=== PATIENT | male | born 1950 | race African-American/Black ===

== ENCOUNTER 2020-12-23 17:02 | Inpatient (IN) | payer OTHER ==
[~2020-12-23] VITALS: Ht 182.9 cm; Wt 125.2 kg
[2020-12-23 17:26] LABS: Basophils # (auto) 0.1 10 ^3/uL (0-0.2); Basophils % (auto) 0.9 % (0.0-2.0); Eosinophils # (auto) 0.1 10 ^3/uL (0-0.8); Eosinophils % (auto) 0.9 % (0.0-7.0); Hematocrit 43.4 % (41.0-53.0); Hemoglobin 14.9 g/dL (13.5-17.5); Lymphocytes # (auto) 2.5 10 ^3/uL (0.4-5.4); Lymphocytes % (auto) 41.2 % (10.0-50.0); Mean Corpuscular Hemoglobin 31.7 pg (28.0-32.0); Mean Corpuscular Hgb Conc. 34.3 g/dL (32.0-36.0); Mean Corpuscular Volume 92.4 fL (80.0-100.0); Monocytes # (auto) 0.6 10 ^3/uL (0-1.3); Monocytes % (auto) 9.8 % (0.0-12.0); Neutrophils # (auto) 2.9 10 ^3/uL (1.6-8.6); Neutrophils % (auto) 47.2 % (37.0-80.0); Red Cell Distribution Width 13.2 % (11.8-14.3); White Blood Cell 6.1 10^3/uL (4.4-10.8)
[2020-12-23] MEDS ORDERED: SODIUM CHLORIDE 0.9% 1,000 ML IV ONE ×2 (17:30→23:30)
[2020-12-23 17:52] LABS: Calcium 9.2 mg/dL (8.5-10.1); Magnesium 2.4 mg/dL (1.6-2.6)
[2020-12-23 17:57] LABS: BUN/Creatinine Ratio 13.9; Bilirubin, Total 0.6 mg/dL (0.2-1.0); Total Protein 8.4 g/dL (6.4-8.2)
[2020-12-23 18:48] LABS: Urine Bacteria NONE SEEN /hpf (None Seen); Urine Blood Negative /uL (Negative); Urine Specific Gravity 1.029 (1.001-1.035); Urine WBC 1 /hpf (0 - 3)
[2020-12-23] MEDS ORDERED: ROSU20TA14 PO (19:27)
[2020-12-23] MEDS ORDERED: METH5T PO (19:27)
[2020-12-23] MEDS ORDERED: METF500S PO (19:27)
[2020-12-23] MEDS ORDERED: BISO5TAB44 PO (19:27)
[2020-12-23] MEDS ORDERED: DILT60TA PO (19:28)
[2020-12-23] MEDS ORDERED: InsuLIN REG 1unit/0.01ml Soln (100units/ml) IV ONE (19:30)
[2020-12-23] MEDS ORDERED: INSULIN LANTUS (GLARGINE) 1 /0.01ml (100units/ml) SC ONE (19:30)
[2020-12-23] MEDS ORDERED: DEXTROSE (50%) 50ML SYRG IV PRN ×2 (19:30→22:45)
[2020-12-23] MEDS: InsuLIN R (HUMAN) 100 UNITS in SODIUM CHL 0.9% 99 ML IV SCH ×3 (20:31→22:43)
[2020-12-23] MEDS: ACCU-CHEK COMFORT CURVE STRIP VI SCH ×3 (20:32→22:42)
[2020-12-23] MEDS ORDERED: DOCUSATE SOD 100 MG CAP PO PRN (22:45)
[2020-12-23] MEDS ORDERED: ACETAMINOPHEN 325 MG TAB PO PRN (22:45)
[2020-12-23] MEDS ORDERED: NITROGLYCERIN 0.4 MG SL TAB SL PRN (22:45)
[2020-12-23] MEDS ORDERED: HYDROcodone-ACET 5/325MG TAB PO PRN (22:45)
[2020-12-23] MEDS ORDERED: SODIUM CHLORIDE 0.9% 1,000 ML IV SCH (22:45)
[2020-12-23] MEDS ORDERED: MORPHINE SULF INJ 2 MG/ML SYRINGE 1ML IV PRN (22:45)
[2020-12-23] MEDS ORDERED: ONDANSETRON HCL 4 MG/2 ML VIAL IV PRN (22:45)
[2020-12-23 23:02] LABS: Albumin 3.9 g/dL (3.4-5.0); Calcium 8.9 mg/dL (8.5-10.1); Potassium 4.5 mmol/L (3.5-5.1)
[2020-12-23 23:06] LABS: BUN/Creatinine Ratio 13.5; Bilirubin, Total 0.5 mg/dL (0.2-1.0); Total Protein 8.3 g/dL (6.4-8.2)
[2020-12-24] MEDS: ACCU-CHEK COMFORT CURVE STRIP VI SCH ×6 (00:09→22:17)
[2020-12-24] MEDS: InsuLIN R (HUMAN) 100 UNITS in SODIUM CHL 0.9% 99 ML IV SCH ×3 (00:09→02:52)
[2020-12-24] MEDS ORDERED: InsuLIN R (HUMAN) 100 UNITS in SODIUM CHL 0.9% 99 ML IV SCH (03:00)
[2020-12-24] MEDS ORDERED: ACCU-CHEK COMFORT CURVE STRIP VI SCH ×3 (03:00→06:00)
[2020-12-24 03:30] LABS: Basophils # (auto) 0.1 10 ^3/uL (0-0.2); Basophils % (auto) 1.6 % (0.0-2.0); Eosinophils # (auto) 0.1 10 ^3/uL (0-0.8); Eosinophils % (auto) 2.1 % (0.0-7.0); Hematocrit 41.8 % (41.0-53.0); Hemoglobin 14.4 g/dL (13.5-17.5); Lymphocytes # (auto) 2.5 10 ^3/uL (0.4-5.4); Lymphocytes % (auto) 44.1 % (10.0-50.0); Mean Corpuscular Hemoglobin 31.5 pg (28.0-32.0); Mean Corpuscular Hgb Conc. 34.4 g/dL (32.0-36.0); Mean Corpuscular Volume 91.4 fL (80.0-100.0); Monocytes # (auto) 0.6 10 ^3/uL (0-1.3); Monocytes % (auto) 10.6 % (0.0-12.0); Neutrophils # (auto) 2.4 10 ^3/uL (1.6-8.6); Neutrophils % (auto) 41.6 % (37.0-80.0); Nucleated Red Blood Cells % 0.2 %; Red Blood Cells 4.57 10^6/uL (4.5-5.90); Red Cell Distribution Width 13.4 % (11.8-14.3); White Blood Cell 5.7 10^3/uL (4.4-10.8)
[2020-12-24 03:46] LABS: Albumin 3.2 g/dL (3.4-5.0); Calcium 8.8 mg/dL (8.5-10.1); Potassium 4.1 mmol/L (3.5-5.1)
[2020-12-24 03:47] LABS: Cholesterol 101 mg/dL (< 200)
[2020-12-24 03:48] LABS: BUN/Creatinine Ratio 15.3
[2020-12-24 03:51] LABS: Bilirubin, Total 0.4 mg/dL (0.2-1.0); Total Protein 7.3 g/dL (6.4-8.2)
[2020-12-24 03:52] LABS: HDL Cholesterol 28 mg/dL (40-59); LDL Cholesterol 45 mg/dL (< 100); Triglycerides 271 mg/dL (< 150)
[2020-12-24] MEDS ORDERED: DEXTROSE (50%) 50ML SYRG IV PRN ×3 (04:15→11:00)
[2020-12-24] MEDS ORDERED: InsuLIN REG 1unit/0.01ml Soln (100units/ml) SC SCH ×3 (06:00→22:00)
[2020-12-24] MEDS ORDERED: INSULIN LANTUS (GLARGINE) 1 /0.01ml (100units/ml) SC SCH ×2 (07:00→10:00)
[2020-12-24 08:50] VITALS: BP 123/68
[2020-12-24] MEDS: FAMOTIDINE 20 MG TAB PO SCH ×2 (09:59→22:16)
[2020-12-24] MEDS ORDERED: ZINC SULFATE 220mg CAP or TAB PO SCH (10:00)
[2020-12-24] MEDS ORDERED: ASCORBIC ACID 500 MG TAB PO SCH (10:00)
[2020-12-24] MEDS ORDERED: HEPARIN SODIUM (PORCINE) 5000 UNITS/ML 1ML VIAL SC SCH (10:00)
[2020-12-24] MEDS: MULTIPLE VITAMIN TAB PO SCH (10:00)
[2020-12-24] MEDS ORDERED: methIMAzole 5 MG TAB PO ONE (10:45)
[2020-12-24] MEDS: SODIUM CHLORIDE 0.9% 1,000 ML IV SCH ×2 (11:12→20:45)
[2020-12-24] MEDS: InsuLIN REG 1unit/0.01ml Soln (100units/ml) SC SCH ×2 (11:39→17:35)
[2020-12-24 13:00] VITALS: BP 131/86
[2020-12-24 13:01] LABS: Free T3 2.59 pg/mL (2.3-4.2); Free T4 (Free Thyroxine) 1.31 ng/dL (0.89-1.76)
[2020-12-24 16:42] VITALS: BP 107/71
[2020-12-24] MEDS: metFORMIN HYDROCHLORIDE 500 MG TAB PO SCH (17:34)
[2020-12-24] MEDS: INSULIN NPH Isophane (HUMAN) 1unit/0.01ml Susp(100units/ml) SC SCH (17:37)
[2020-12-24 22:00] VITALS: BP 118/75
[2020-12-24] MEDS ORDERED: ATORVASTATIN 20 MG TAB PO SCH (22:00)
[2020-12-24] MEDS: DABIGATRAN 75 MG CAP PO SCH (22:15)
[2020-12-25 05:00] VITALS: BP 136/94
[2020-12-25] MEDS: SODIUM CHLORIDE 0.9% 1,000 ML IV SCH ×2 (05:52→12:29)
[2020-12-25] MEDS: InsuLIN REG 1unit/0.01ml Soln (100units/ml) SC SCH ×2 (05:52→10:58)
[2020-12-25] MEDS: INSULIN NPH Isophane (HUMAN) 1unit/0.01ml Susp(100units/ml) SC SCH (05:54)
[2020-12-25] MEDS: ACCU-CHEK COMFORT CURVE STRIP VI SCH ×2 (05:57→11:00)
[2020-12-25 09:00] VITALS: BP 114/87
[2020-12-25] MEDS: metFORMIN HYDROCHLORIDE 500 MG TAB PO SCH (09:00)
[2020-12-25] MEDS: MULTIPLE VITAMIN TAB PO SCH (09:01)
[2020-12-25] MEDS: FAMOTIDINE 20 MG TAB PO SCH (09:01)
[2020-12-25] MEDS: DABIGATRAN 75 MG CAP PO SCH (09:01)
[2020-12-25] MEDS ORDERED: ATENOLOL 50 MG TAB PO SCH (10:00)
[2020-12-25] MEDS ORDERED: methIMAzole 5 MG TAB PO SCH (10:00)
[2020-12-25 11:17] LABS: Basophils # (auto) 0.1 10 ^3/uL (0-0.2); Basophils % (auto) 1.5 % (0.0-2.0); Eosinophils # (auto) 0.1 10 ^3/uL (0-0.8); Eosinophils % (auto) 1.8 % (0.0-7.0); Hemoglobin 14.1 g/dL (13.5-17.5); Lymphocytes # (auto) 2.3 10 ^3/uL (0.4-5.4); Lymphocytes % (auto) 42.9 % (10.0-50.0); Mean Corpuscular Hemoglobin 31.4 pg (28.0-32.0); Mean Corpuscular Hgb Conc. 34.3 g/dL (32.0-36.0); Mean Corpuscular Volume 91.5 fL (80.0-100.0); Monocytes # (auto) 0.5 10 ^3/uL (0-1.3); Monocytes % (auto) 10.2 % (0.0-12.0); Neutrophils # (auto) 2.3 10 ^3/uL (1.6-8.6); Neutrophils % (auto) 43.6 % (37.0-80.0); Nucleated Red Blood Cells % 0.1 %; Red Blood Cells 4.48 10^6/uL (4.5-5.90); Red Cell Distribution Width 13.5 % (11.8-14.3); White Blood Cell 5.3 10^3/uL (4.4-10.8)
[2020-12-25 11:31] LABS: Potassium 4.3 mmol/L (3.5-5.1)
[2020-12-25 11:36] LABS: BUN/Creatinine Ratio 22.1; Calcium 8.3 mg/dL (8.5-10.1)
[2020-12-25 13:00] VITALS: BP 136/90
[2020-12-25 15:26] VITALS: BP 136/90
[2020-12-25 16:52] VITALS: BP 130/71
== END 2020-12-25 17:20 | disposition home or self-care (01) | DRG 637 ==
LOC: ER 17:02 → TELE 22:32 → TELE-CENTR 12-24 07:45 → CENTRAL 12-25 12:59
PROVIDERS: ADMIT Nurse Practitioner Family; ATTEND Internal Medicine
DX: E11.10 Type 2 diabetes mellitus with ketoacidosis without coma (principal); N17.0 Acute kidney failure with tubular necrosis; D68.59 Other primary thrombophilia; E87.1 Hypo-osmolality and hyponatremia; I10 Essential (primary) hypertension; E66.9 Obesity, unspecified; Z20.822 Contact with and (suspected) exposure to COVID-19; E78.5 Hyperlipidemia, unspecified; F17.210 Nicotine dependence, cigarettes, uncomplicated; I48.91 Unspecified atrial fibrillation; Z80.9 Family history of malignant neoplasm, unspecified; Z83.3 Family history of diabetes mellitus; Z71.3 Dietary counseling and surveillance; Z68.37 Body mass index [BMI] 37.0-37.9, adult; E05.90 Thyrotoxicosis, unspecified without thyrotoxic crisis or storm; Z79.84 Long term (current) use of oral hypoglycemic drugs
CPT/HCPCS: 36415; 71045; 71046; 80048; 80053; 80061; 81001; 82010; 82962; 83036; 83735; 84439; 84443; 84481; 84484; 85025; 85049; 87426; 93005; 96365; 96366; 96372; 96376; 99291; G0378; J1815